=== PATIENT | male | born 1995 | race Caucasian/White ===

== ENCOUNTER 2023-10-18 20:48 | Day surgery (SDC) | payer SELFPAY | END 2023-10-19 01:05 | disposition home or self-care (01) | LOC: ERS 20:48 → SDC/OP 23:17 | PROVIDERS: ATTEND Internal Medicine Gastroenterology | PROC: 0DB58ZX Excision of Esophagus, Via Natural or Artificial Opening Endoscopic, Diagnostic (ICD-10-PCS; principal; 2023-10-18) | PROC: 0DB68ZX Excision of Stomach, Via Natural or Artificial Opening Endoscopic, Diagnostic (ICD-10-PCS; principal; 2023-10-18) | DX: T18.128A Food in esophagus causing other injury, initial encounter (principal); K29.50 Unspecified chronic gastritis without bleeding; B96.81 Helicobacter pylori [H. pylori] as the cause of diseases classified elsewhere; K20.90 Esophagitis, unspecified without bleeding; K22.2 Esophageal obstruction; F17.200 Nicotine dependence, unspecified, uncomplicated; W44.F3XA Food entering into or through a natural orifice, initial encounter | CPT/HCPCS: 71045; 88305; 88312; 88342; 96374; J1100; J1611; J2001; J2405; J2704; Q0162 ==